=== PATIENT | female | born 1990 | race Caucasian/White ===

== ENCOUNTER 2017-10-10 11:39 | Emergency (ER) | payer OTHER, MEDICAID, SELFPAY ==
[2017-10-10 12:11] VITALS: BP 142/98; PULSE 80; RESP 16; TEMP 37.1; O2SAT 97; BMI 18.4
[2017-10-10 12:32] LABS: Add Manual Diff / Slide Review NO; Basophils Percent Auto 0.8 % (0-2); Eosinophils Percent Auto 2.6 % (2-4); Hematocrit 43.9 % (36-46); Hemoglobin 14.8 g/dL (12.0-16.0); Lymphocytes Percent Auto 24.7 % (25-40); Mean Corpuscular HGB Conc 33.7 % (30-36); Mean Corpuscular Hemoglobin 30.7 PG (26-34); Mean Corpuscular Volume 90.9 fL (80-100); Monocytes Percent Auto 7.6 % (3-14); Neutrophils Absolute Auto 3500 /uL (3000-5900); Neutrophils Percent Auto 64.3 % (50-75); Platelet Count 261 X10^3/uL (150-400); Red Blood Cell Count 4.82 X10^6/uL (4.0-5.2); Red Cell Distribution Width 14.2 % (11.6-14.8); White Blood Cell Count 5.5 X10^3/uL (4.5-11.0)
[2017-10-10 12:40] LABS: Prothrombin Time 10.7 SECONDS (10.1-12.7)
[2017-10-10 12:45] LABS: Alanine Aminotransferase 20 IU/L (9-52); Albumin 4.5 g/dL (3.5-5.0); Albumin Globulin Ratio 1.7 (1.0-2.8); Alkaline Phosphatase 55 U/L (38-126); Aspartate Aminotransferase 27 IU/L (14-36); BUN Creatinine Ratio 11.3 (6-22); Bilirubin Total 0.8 mg/dL (0.2-1.3); Blood Urea Nitrogen 9 mg/dL (7-17); Calcium 9.8 mg/dL (8.4-10.2); Carbon Dioxide 27 mmol/L (22-32); Chloride 104 mmol/L (98-107); Estimated Glomerular Filt Rate > 60.0 mL/min (>60); Globulin 2.7 g/dL (1.7-4.1); Glucose 99 mg/dL (70-100); HEMOLYSIS < 15 (0-50); Lipase 69 U/L (23-300); Potassium 4.1 mmol/L (3.4-5.1); Sodium 139 mmol/L (137-145); Total Protein 7.2 g/dL (6.3-8.2)
[2017-10-10 12:48] LABS: PTT Partial Thromboplastin Tim 31 SECONDS (26.4-36.2)
--- NOTE | 2017-10-10 13:39 | ED.ABDPAIN ---
HPI - Abdominal Pain <CELESTINO Benson - Last Filed: 10/10/17 23:00> General Chief Complaint: Abdominal Pain Stated Complaint: LOWER RIGHT ABD PAIN Time Seen by Provider: 10/10/17 13:39 History of Present Illness HPI narrative: 27-year-old female here for complaint of pain into her right lower quadrant for the last day. She reportedly went would be [facility] ER yesterday and received ultrasound and labs. She reports that the ultrasound was negative however they could not see her appendix. She denies any urinary symptoms. No fevers no chills. Some nausea no vomiting. She states she has not had much of an appetite over the past couple of days. Last bowel movement was day before yesterday and was unremarkable. She says that this is normal for her. She denies any abnormal vaginal discharge. She denies any flank pain. MD complaint: abdominal pain Related Data Home Medications Medication Instructions Recorded Confirmed No Known Home Medications 10/10/17 10/10/17 Allergies Allergy/AdvReac Type Severity Reaction Status Date / Time No Known Drug Allergies Allergy Verified 10/10/17 14:51 Review of Systems <CELESTINO Benson - Last Filed: 10/10/17 23:00> Constitutional Denies chills, Denies fever(s), Denies lethargy and Denies weakness Eyes Denies change in vision, Denies eye discharge, Denies irritation and Denies loss of vision ENT Ears, Nose, Mouth, and Throat: Denies change in voice, Denies neck pain and Denies sore throat Cardiovascular Denies chest pain, Denies irregular heart rhythm, Denies lightheadedness, Denies palpitations, Denies dyspnea, Denies dyspnea on exertion and Denies orthopnea Respiratory Denies cough, Denies dyspnea, Denies dyspnea on exertion and Denies wheezing Gastrointestinal Gastrointestinal: Reports abdominal pain Genitourinary Denies hematuria, Denies flank pain, Denies urinary incontinence and Denies urinary urgency Musculoskeletal Denies neck pain Integumentary/Breasts Denies pruritus, Denies erythema, Denies rash and Denies wounds Neurologic Denies confusion, Denies loss of vision and Denies weakness Psychiatric Denies anxiety, Denies confusion, Denies depression, Denies homicidal ideation and Denies suicidal ideation Endocrine Denies palpitations Hematologic/Lymphatic Denies easy bruising Allergic/Immunologic Denies wheezing Exam <CELESTINO Benson - Last Filed: 10/10/17 23:00> Initial Vital Signs Initial Vital Signs: Vital Signs Temperature 98.8 F 10/10/17 12:11 Pulse Rate 80 10/10/17 12:11 Respiratory Rate 16 10/10/17 12:11 Blood Pressure 142/98 H 10/10/17 12:11 Pulse Oximetry 97 10/10/17 12:11 Const General: cooperative and well developed Nutritional Appearance: well nourished Orientation: alert, awake, oriented x3 and not confused [facility] Mouth: oral mucosae normal and moist mucous membranes Eyes General: appearance normal, both eyes and all related structures Eyelids: eyelids normal Conjunctivae: conjunctivae normal Sclera: sclerae normal Pupils: PERRL EOM: EOM intact bilaterally Resp Effort & Inspection: normal respiratory effort, able to speak in complete sentences, no respiratory distress and no use of accessory muscles Auscultation: clear to auscultation bilaterally, no rales, no rhonchi and no wheezes Cardio Rate: regular rate Rhythm: regular rhythm Heart Sounds: no click, no gallops, no murmurs and no rubs Pulses: normal peripheral pulses GI Inspection: non-distended Palpation: soft, no hepatosplenomegaly, No guarding, No pulsatile mass and tender Auscultation: normal bowel sounds Other: Tenderness to palpation to the right lower quadrant. General: No CVA tenderness Skin General: no rashes or lesions noted, No jaundice and No petechiae Neuro General: alert, oriented x3, gait normal and no focal motor deficits Speech: speech normal <Prince Villarreal DO - Last Filed: 10/11/17 07:21> Initial Vital Signs Initial Vital Signs: Vital Signs Temperature 98.8 F 10/10/17 12:11 Pulse Rate 80 10/10/17 12:11 Respiratory Rate 16 10/10/17 12:11 Blood Pressure 142/98 H 10/10/17 12:11 Pulse Oximetry 97 10/10/17 12:11 Course <CELESTINO Benson - Last Filed: 10/10/17 23:00> Orders Ordered: Discontinued Medications Hydromorphone HCl (Dilaudid) 0.5 mg IV NOW ONE Stop: 10/10/17 14:11 Last Admin: 10/10/17 14:55 Dose: 0.5 mg Sodium Chloride (Normal Saline 0.9%) 500 mls @ 1,000 mls/hr IV BOLUS ONE Stop: 10/10/17 14:39 Last Infusion: 10/10/17 16:15 Dose: 0 mls/hr Admin: 10/10/17 14:56 Dose: 1,000 mls/hr Ondansetron HCl (Zofran) 4 mg IV NOW ONE Stop: 10/10/17 14:11 Last Admin: 10/10/17 14:56 Dose: 4 mg Vital Signs - 8 hr 10/10/17 18:26 Pulse Rate 73 Respiratory Rate 20 Blood Pressure 132/85 H Pulse Oximetry 98 <Prince Villarreal DO - Last Filed: 10/11/17 07:21> Orders Ordered: Discontinued Medications Hydromorphone HCl (Dilaudid) 0.5 mg IV NOW ONE Stop: 10/10/17 14:11 Last Admin: 10/10/17 14:55 Dose: 0.5 mg Sodium Chloride (Normal Saline 0.9%) 500 mls @ 1,000 mls/hr IV BOLUS ONE Stop: 10/10/17 14:39 Last Infusion: 10/10/17 16:15 Dose: 0 mls/hr Admin: 10/10/17 14:56 Dose: 1,000 mls/hr Ondansetron HCl (Zofran) 4 mg IV NOW ONE Stop: 10/10/17 14:11 Last Admin: 10/10/17 14:56 Dose: 4 mg Vital Signs - 8 hr 10/10/17 18:26 Pulse Rate 73 Respiratory Rate 20 Blood Pressure 132/85 H Pulse Oximetry 98 MDM - Abdominal Pain <CELESTINO Benson - Last Filed: 10/10/17 23:00> Lab Data Result diagrams: 10/10/17 12:23 10/10/17 12:23 Lab Results 10/10/17 10/10/17 10/10/17 Range/Units 12:23 12:23 12:23 WBC 5.5 (4.5-11.0) X10^3/uL RBC 4.82 (4.0-5.2) X10^6/uL Hgb 14.8 (12.0-16.0) g/dL Hct 43.9 (36-46) % MCV 90.9 (80-100) fL MCH 30.7 (26-34) PG MCHC 33.7 (30-36) % RDW 14.2 (11.6-14.8) % Plt Count 261 (150-400) X10^3/uL Neut % (Auto) 64.3 (50-75) % Lymph % (Auto) 24.7 L (25-40) % [place] % (Auto) 7.6 (3-14) % Eos % (Auto) 2.6 (2-4) % Baso % (Auto) 0.8 (0-2) % Neut # (Auto) 3500 (7744-5925) /uL PT 10.7 (10.1-12.7) SECONDS INR 1.0 (0.9-1.3) APTT 31 (26.4-36.2) SECONDS Sodium 139 (137-145) mmol/L Potassium 4.1 (3.4-5.1) mmol/L Chloride 104 (98-107) mmol/L Carbon Dioxide 27 (22-32) mmol/L BUN 9 (7-17) mg/dL Creatinine 0.80 (0.52-1.04) mg/dL Estimated GFR > 60.0 (>60) mL/min BUN/Creatinine Ratio 11.3 (6-22) Glucose 99 (70-100) mg/dL Calcium 9.8 (8.4-10.2) mg/dL Total Bilirubin 0.8 (0.2-1.3) mg/dL AST 27 (14-36) IU/L ALT 20 (9-52) IU/L Alkaline Phosphatase 55 (38-126) U/L Total Protein 7.2 (6.3-8.2) g/dL Albumin 4.5 (3.5-5.0) g/dL Globulin 2.7 (1.7-4.1) g/dL Albumin/Globulin Ratio 1.7 (1.0-2.8) Lipase 69 (23-300) U/L Point of care testing: Point of Care Testing Test Results Negative Urine Dip Bedside Urine Glucose Negative Bedside Urine Bilirubin - Negative Bedside Urine Ketone - Negative Urine Specific [place] 1.010 Bedside Urine Occult Blood - Negative Bedside Urine pH 6.0 Bedside Urine Protein - Negative Bedside Urine Urobilinogen - Negative Bedside Urine Nitrite - Negative Bedside Urine Leukocytes - Negative Esterase MDM Narrative Medical decision making narrative: CBC and Chem panel were obtained were unremarkable. Lipase was negative. Urinalysis was negative for and also for urinary tract infection. CT of the abdomen shows fatty liver and what looks like a hemangioma radiologist recommended obtaining ultrasound. Ultrasound of the right upper quadrant was obtained with no finding a hemangioma appreciated. Signs and symptoms presents as abdominal wall pain. [id number] Tylenol or Motrin as needed for any discomfort. Follow up with primary care provider for further re-evaluation next week. <Prince Villarreal DO - Last Filed: 10/11/17 07:21> Lab Data Lab Results 10/10/17 10/10/17 10/10/17 Range/Units 12:23 12:23 12:23 WBC 5.5 (4.5-11.0) X10^3/uL RBC 4.82 (4.0-5.2) X10^6/uL Hgb 14.8 (12.0-16.0) g/dL Hct 43.9 (36-46) % MCV 90.9 (80-100) fL MCH 30.7 (26-34) PG MCHC 33.7 (30-36) % RDW 14.2 (11.6-14.8) % Plt Count 261 (150-400) X10^3/uL Neut % (Auto) 64.3 (50-75) % Lymph % (Auto) 24.7 L (25-40) % [place] % (Auto) 7.6 (3-14) % Eos % (Auto) 2.6 (2-4) % Baso % (Auto) 0.8 (0-2) % Neut # (Auto) 3500 (3386-8224) /uL PT 10.7 (10.1-12.7) SECONDS INR 1.0 (0.9-1.3) APTT 31 (26.4-36.2) SECONDS Sodium 139 (137-145) mmol/L Potassium 4.1 (3.4-5.1) mmol/L Chloride 104 (98-107) mmol/L Carbon Dioxide 27 (22-32) mmol/L BUN 9 (7-17) mg/dL Creatinine 0.80 (0.52-1.04) mg/dL Estimated GFR > 60.0 (>60) mL/min BUN/Creatinine Ratio 11.3 (6-22) Glucose 99 (70-100) mg/dL Calcium 9.8 (8.4-10.2) mg/dL Total Bilirubin 0.8 (0.2-1.3) mg/dL AST 27 (14-36) IU/L ALT 20 (9-52) IU/L Alkaline Phosphatase 55 (38-126) U/L Total Protein 7.2 (6.3-8.2) g/dL Albumin 4.5 (3.5-5.0) g/dL Globulin 2.7 (1.7-4.1) g/dL Albumin/Globulin Ratio 1.7 (1.0-2.8) Lipase 69 (23-300) U/L Point of care testing: Point of Care Testing Test Results Negative Urine Dip Bedside Urine Glucose Negative Bedside Urine Bilirubin - Negative Bedside Urine Ketone - Negative Urine Specific [place] 1.010 Bedside Urine Occult Blood - Negative Bedside Urine pH 6.0 Bedside Urine Protein - Negative Bedside Urine Urobilinogen - Negative Bedside Urine Nitrite - Negative Bedside Urine Leukocytes - Negative Esterase Discharge Plan Departure Patient Disposition: Home, Self-Care Clinical Impression: Abdominal pain Discharge Date/Time: 10/10/17 18:27 Interventions: ED Discharge Assessment Last Done: 10/10/17 18:26 Instructions: DI for Abdominal Muscle Strain Activity Restrictions/Additional Instructions: Laboratory results and imaging today were unremarkable with the exception of having a fatty liver. Follow up with her primary care provider next week for re-evaluation. Signs and symptoms presents as abdominal wall strain. Use [id number] Tylenol or Motrin as needed for any discomfort. Rest area. Return emergency room for any worsening symptoms. Prescriptions: No Action No Known Home Medications RF: 0 Referrals: [facility] [Provider Group] <Prince Villarreal DO - Last Filed: 10/11/17 07:21> Cosign ED Attending Courtney Attestation: I was available for consultation during this patient's emergency department encounter
--- NOTE | 2017-10-10 14:11 | DI.CT.S_ITS ---
PROCEDURE: CT ABDOMEN PELVIS W CON INDICATIONS: Pain to right lower quadrant TECHNIQUE: After the administration of oral and intravenous contrast, 5 mm thick sections acquired from the diaphragms to the symphysis. 5 mm thick coronal and sagittal reformats were performed. For radiation dose reduction, the following was used: automated exposure control, adjustment of mA and/or kV according to patient size. COMPARISON: [facility], CT, KIDNEY/ URETER/BLADDER, 06/10/2016, 16:59. FINDINGS: Image quality: Excellent. ABDOMEN: Lung bases: Lung bases are clear. Heart size is normal. Solid organs: Liver is normal in size with fairly marked decreased in attenuation compatible with fatty infiltration, excepting a focal area in the medial left lobe adjacent to the falciform ligament which is hyperdense and may reflect cavernous hemangioma, less likely focal sparing. Gallbladder appears normal. Biliary system is non-dilated. Pancreas enhances normally. Spleen is normal in size and enhancement. No adrenal nodules. Kidneys are normal in size and enhancement, without hydronephrosis. Peritoneum and bowel: Stomach, small bowel, and colon loops are normal in caliber and wall thickness. Normal appendix. No free fluid or air. Nodes and vessels: No retroperitoneal or mesenteric adenopathy. Aorta and inferior vena cava are normal in caliber. Miscellaneous: No ventral hernias. PELVIS: Genitourinary: Bladder wall thickness is normal. Uterus appears normal, considerable perienteric vascularity present. Tampon is present in the vagina. Ovaries are unremarkable. Trace free fluid. Miscellaneous: No inguinal hernias or adenopathy. Bones: No suspicious bony lesions. No vertebral body compression fractures. IMPRESSION: 1. No acute findings in the abdomen or pelvis to explain right lower quadrant pain. Normal appendix is identified. Uterus and adnexa are unremarkable, vaginal tampon present. 2. Liver shows considerable fatty infiltration or steatosis. Correlation with liver function tests suggested. There is a suspected 1.4 cm hemangioma in the medial segment of the left lobe liver adjacent to the falciform ligament, not seen on previous noncontrast exam. Suggest abdominal ultrasound for further evaluation. Dictated by: Troy Pickard M.D. on 10/10/2017 at 15:38 Approved by: Troy Pickard M.D. on 10/10/2017 at 15:47
[2017-10-10] MEDS: HYDROMORPHONE 1 MG INJ 0.5 MG IV (14:55)
[2017-10-10] MEDS: SODIUM CHLORIDE 0.9% 500 ML 1000 ML IV (14:56)
[2017-10-10] MEDS: ONDANSETRON 4 MG/2 ML INJ IV (14:56)
--- NOTE | 2017-10-10 15:50 | DI.US.S_ITS ---
PROCEDURE: US ABDOMEN LIMITED INDICATIONS: Hemangioma? Seen into liver on CT TECHNIQUE: Real-time focused scanning was performed of the abdomen, with image documentation. COMPARISON: [facility], CT, CT ABDOMEN PELVIS W CON, 10/10/2017, 15:10. FINDINGS: No definitive hemangioma is identified near the falciform ligament. IMPRESSION: The definitive hepatic hemangioma is identified. Dictated by: Yaquelin Cortes M.D. on 10/10/2017 at 16:45 Approved by: Yaquelin Cortes M.D. on 10/10/2017 at 16:46
--- NOTE | 2017-10-10 17:39 | ED_ITS ---
HPI - Abdominal Pain <CELESTINO Benson - Last Filed: 10/10/17 23:00> General Chief Complaint: Abdominal Pain Stated Complaint: LOWER RIGHT ABD PAIN Time Seen by Provider: 10/10/17 13:39 History of Present Illness HPI narrative: 27-year-old female here for complaint of pain into her right lower quadrant for the last day. She reportedly went would be [facility] ER yesterday and received ultrasound and labs. She reports that the ultrasound was negative however they could not see her appendix. She denies any urinary symptoms. No fevers no chills. Some nausea no vomiting. She states she has not had much of an appetite over the past couple of days. Last bowel movement was day before yesterday and was unremarkable. She says that this is normal for her. She denies any abnormal vaginal discharge. She denies any flank pain. MD complaint: abdominal pain Related Data Home Medications Medication Instructions Recorded Confirmed No Known Home Medications 10/10/17 10/10/17 Allergies Allergy/AdvReac Type Severity Reaction Status Date / Time No Known Drug Allergies Allergy Verified 10/10/17 14:51 Review of Systems <CELESTINO Benson - Last Filed: 10/10/17 23:00> Constitutional Denies chills, Denies fever(s), Denies lethargy and Denies weakness Eyes Denies change in vision, Denies eye discharge, Denies irritation and Denies loss of vision ENT Ears, Nose, Mouth, and Throat: Denies change in voice, Denies neck pain and Denies sore throat Cardiovascular Denies chest pain, Denies irregular heart rhythm, Denies lightheadedness, Denies palpitations, Denies dyspnea, Denies dyspnea on exertion and Denies orthopnea Respiratory Denies cough, Denies dyspnea, Denies dyspnea on exertion and Denies wheezing Gastrointestinal Gastrointestinal: Reports abdominal pain Genitourinary Denies hematuria, Denies flank pain, Denies urinary incontinence and Denies urinary urgency Musculoskeletal Denies neck pain Integumentary/Breasts Denies pruritus, Denies erythema, Denies rash and Denies wounds Neurologic Denies confusion, Denies loss of vision and Denies weakness Psychiatric Denies anxiety, Denies confusion, Denies depression, Denies homicidal ideation and Denies suicidal ideation Endocrine Denies palpitations Hematologic/Lymphatic Denies easy bruising Allergic/Immunologic Denies wheezing Exam <CELESTINO Benson - Last Filed: 10/10/17 23:00> Initial Vital Signs Initial Vital Signs: Vital Signs Temperature 98.8 F 10/10/17 12:11 Pulse Rate 80 10/10/17 12:11 Respiratory Rate 16 10/10/17 12:11 Blood Pressure 142/98 H 10/10/17 12:11 Pulse Oximetry 97 10/10/17 12:11 Const General: cooperative and well developed Nutritional Appearance: well nourished Orientation: alert, awake, oriented x3 and not confused [facility] Mouth: oral mucosae normal and moist mucous membranes Eyes General: appearance normal, both eyes and all related structures Eyelids: eyelids normal Conjunctivae: conjunctivae normal Sclera: sclerae normal Pupils: PERRL EOM: EOM intact bilaterally Resp Effort & Inspection: normal respiratory effort, able to speak in complete sentences, no respiratory distress and no use of accessory muscles Auscultation: clear to auscultation bilaterally, no rales, no rhonchi and no wheezes Cardio Rate: regular rate Rhythm: regular rhythm Heart Sounds: no click, no gallops, no murmurs and no rubs Pulses: normal peripheral pulses GI Inspection: non-distended Palpation: soft, no hepatosplenomegaly, No guarding, No pulsatile mass and tender Auscultation: normal bowel sounds Other: Tenderness to palpation to the right lower quadrant. General: No CVA tenderness Skin General: no rashes or lesions noted, No jaundice and No petechiae Neuro General: alert, oriented x3, gait normal and no focal motor deficits Speech: speech normal <Prince Villarreal DO - Last Filed: 10/11/17 07:21> Initial Vital Signs Initial Vital Signs: Vital Signs Temperature 98.8 F 10/10/17 12:11 Pulse Rate 80 10/10/17 12:11 Respiratory Rate 16 10/10/17 12:11 Blood Pressure 142/98 H 10/10/17 12:11 Pulse Oximetry 97 10/10/17 12:11 Course <CELESTINO Benson - Last Filed: 10/10/17 23:00> Orders Ordered: Discontinued Medications Hydromorphone HCl (Dilaudid) 0.5 mg IV NOW ONE Stop: 10/10/17 14:11 Last Admin: 10/10/17 14:55 Dose: 0.5 mg Sodium Chloride (Normal Saline 0.9%) 500 mls @ 1,000 mls/hr IV BOLUS ONE Stop: 10/10/17 14:39 Last Infusion: 10/10/17 16:15 Dose: 0 mls/hr Admin: 10/10/17 14:56 Dose: 1,000 mls/hr Ondansetron HCl (Zofran) 4 mg IV NOW ONE Stop: 10/10/17 14:11 Last Admin: 10/10/17 14:56 Dose: 4 mg Vital Signs - 8 hr 10/10/17 18:26 Pulse Rate 73 Respiratory Rate 20 Blood Pressure 132/85 H Pulse Oximetry 98 <Prince Villarreal DO - Last Filed: 10/11/17 07:21> Orders Ordered: Discontinued Medications Hydromorphone HCl (Dilaudid) 0.5 mg IV NOW ONE Stop: 10/10/17 14:11 Last Admin: 10/10/17 14:55 Dose: 0.5 mg Sodium Chloride (Normal Saline 0.9%) 500 mls @ 1,000 mls/hr IV BOLUS ONE Stop: 10/10/17 14:39 Last Infusion: 10/10/17 16:15 Dose: 0 mls/hr Admin: 10/10/17 14:56 Dose: 1,000 mls/hr Ondansetron HCl (Zofran) 4 mg IV NOW ONE Stop: 10/10/17 14:11 Last Admin: 10/10/17 14:56 Dose: 4 mg Vital Signs - 8 hr 10/10/17 18:26 Pulse Rate 73 Respiratory Rate 20 Blood Pressure 132/85 H Pulse Oximetry 98 MDM - Abdominal Pain <CELESTINO Benson - Last Filed: 10/10/17 23:00> Lab Data Result diagrams: 10/10/17 12:23 10/10/17 12:23 Lab Results 10/10/17 10/10/17 10/10/17 Range/Units 12:23 12:23 12:23 WBC 5.5 (4.5-11.0) X10^3/uL RBC 4.82 (4.0-5.2) X10^6/uL Hgb 14.8 (12.0-16.0) g/dL Hct 43.9 (36-46) % MCV 90.9 (80-100) fL MCH 30.7 (26-34) PG MCHC 33.7 (30-36) % RDW 14.2 (11.6-14.8) % Plt Count 261 (150-400) X10^3/uL Neut % (Auto) 64.3 (50-75) % Lymph % (Auto) 24.7 L (25-40) % [place] % (Auto) 7.6 (3-14) % Eos % (Auto) 2.6 (2-4) % Baso % (Auto) 0.8 (0-2) % Neut # (Auto) 3500 (5763-8811) /uL PT 10.7 (10.1-12.7) SECONDS INR 1.0 (0.9-1.3) APTT 31 (26.4-36.2) SECONDS Sodium 139 (137-145) mmol/L Potassium 4.1 (3.4-5.1) mmol/L Chloride 104 (98-107) mmol/L Carbon Dioxide 27 (22-32) mmol/L BUN 9 (7-17) mg/dL Creatinine 0.80 (0.52-1.04) mg/dL Estimated GFR > 60.0 (>60) mL/min BUN/Creatinine Ratio 11.3 (6-22) Glucose 99 (70-100) mg/dL Calcium 9.8 (8.4-10.2) mg/dL Total Bilirubin 0.8 (0.2-1.3) mg/dL AST 27 (14-36) IU/L ALT 20 (9-52) IU/L Alkaline Phosphatase 55 (38-126) U/L Total Protein 7.2 (6.3-8.2) g/dL Albumin 4.5 (3.5-5.0) g/dL Globulin 2.7 (1.7-4.1) g/dL Albumin/Globulin Ratio 1.7 (1.0-2.8) Lipase 69 (23-300) U/L Point of care testing: Point of Care Testing Test Results Negative Urine Dip Bedside Urine Glucose Negative Bedside Urine Bilirubin - Negative Bedside Urine Ketone - Negative Urine Specific [place] 1.010 Bedside Urine Occult Blood - Negative Bedside Urine pH 6.0 Bedside Urine Protein - Negative Bedside Urine Urobilinogen - Negative Bedside Urine Nitrite - Negative Bedside Urine Leukocytes - Negative Esterase MDM Narrative Medical decision making narrative: CBC and Chem panel were obtained were unremarkable. Lipase was negative. Urinalysis was negative for and also for urinary tract infection. CT of the abdomen shows fatty liver and what looks like a hemangioma radiologist recommended obtaining ultrasound. Ultrasound of the right upper quadrant was obtained with no finding a hemangioma appreciated. Signs and symptoms presents as abdominal wall pain. [id number] Tylenol or Motrin as needed for any discomfort. Follow up with primary care provider for further re-evaluation next week. <Prince Villarreal DO - Last Filed: 10/11/17 07:21> Lab Data Lab Results 10/10/17 10/10/17 10/10/17 Range/Units 12:23 12:23 12:23 WBC 5.5 (4.5-11.0) X10^3/uL RBC 4.82 (4.0-5.2) X10^6/uL Hgb 14.8 (12.0-16.0) g/dL Hct 43.9 (36-46) % MCV 90.9 (80-100) fL MCH 30.7 (26-34) PG MCHC 33.7 (30-36) % RDW 14.2 (11.6-14.8) % Plt Count 261 (150-400) X10^3/uL Neut % (Auto) 64.3 (50-75) % Lymph % (Auto) 24.7 L (25-40) % [place] % (Auto) 7.6 (3-14) % Eos % (Auto) 2.6 (2-4) % Baso % (Auto) 0.8 (0-2) % Neut # (Auto) 3500 (5951-0136) /uL PT 10.7 (10.1-12.7) SECONDS INR 1.0 (0.9-1.3) APTT 31 (26.4-36.2) SECONDS Sodium 139 (137-145) mmol/L Potassium 4.1 (3.4-5.1) mmol/L Chloride 104 (98-107) mmol/L Carbon Dioxide 27 (22-32) mmol/L BUN 9 (7-17) mg/dL Creatinine 0.80 (0.52-1.04) mg/dL Estimated GFR > 60.0 (>60) mL/min BUN/Creatinine Ratio 11.3 (6-22) Glucose 99 (70-100) mg/dL Calcium 9.8 (8.4-10.2) mg/dL Total Bilirubin 0.8 (0.2-1.3) mg/dL AST 27 (14-36) IU/L ALT 20 (9-52) IU/L Alkaline Phosphatase 55 (38-126) U/L Total Protein 7.2 (6.3-8.2) g/dL Albumin 4.5 (3.5-5.0) g/dL Globulin 2.7 (1.7-4.1) g/dL Albumin/Globulin Ratio 1.7 (1.0-2.8) Lipase 69 (23-300) U/L Point of care testing: Point of Care Testing Test Results Negative Urine Dip Bedside Urine Glucose Negative Bedside Urine Bilirubin - Negative Bedside Urine Ketone - Negative Urine Specific [place] 1.010 Bedside Urine Occult Blood - Negative Bedside Urine pH 6.0 Bedside Urine Protein - Negative Bedside Urine Urobilinogen - Negative Bedside Urine Nitrite - Negative Bedside Urine Leukocytes - Negative Esterase Discharge Plan Departure Patient Disposition: Home, Self-Care Clinical Impression: Abdominal pain Discharge Date/Time: 10/10/17 18:27 Interventions: ED Discharge Assessment Last Done: 10/10/17 18:26 Instructions: DI for Abdominal Muscle Strain Activity Restrictions/Additional Instructions: Laboratory results and imaging today were unremarkable with the exception of having a fatty liver. Follow up with her primary care provider next week for re -evaluation. Signs and symptoms presents as abdominal wall strain. Use over- the-counter Tylenol or Motrin as needed for any discomfort. Rest area. Return emergency room for any worsening symptoms. Prescriptions: No Action No Known Home Medications RF: 0 Referrals: [facility] [Provider Group] <Prince Villarreal DO - Last Filed: 10/11/17 07:21> Cosign ED Attending Courtney Attestation: I was available for consultation during this patient's emergency department encounter
[2017-10-10 18:26] VITALS: BP 132/85; PULSE 73; RESP 20; O2SAT 98
== END 2017-10-10 18:27 | disposition home or self-care (01) ==
PROVIDERS: Emergency Medicine; Emergency Provider Nurse Practitioner Family
DX: R10.9 Unspecified abdominal pain (principal)
CPT/HCPCS: 36415; 74177; 76705; 80053; 81003; 81025; 83690; 85025; 85610; 85730; 96361; 96374; 96375; 99283; 99284; J1170; J2405; Q9967